=== PATIENT | male | born 1990 | race Caucasian/White ===

== ENCOUNTER 2016-06-29 10:10 | Emergency (ER) | payer OTHER ==
[2016-06-29 10:54] LABS: BASO # 0.2 K/mm3 (0.0-0.2); BASO % 2.6 % (0.0-1.0); EOS % 0.3 % (0.0-3.0); LARGE UNSTAINED CELL # 0.5 K/mm3 (0.0-0.4); LARGE UNSTAINED CELL % 7.3 % (0.0-4.0); LYMPH # 1.8 K/mm3 (1.5-6.5); LYMPH % 16.6 % (24.0-44.0); MEAN CORPUSCULAR HEMOGLOBIN 31.1 pg (27.0-33.0); MEAN CORPUSCULAR HGB CONC 34.4 g/dl (32.0-36.5); MEAN CORPUSCULAR VOLUME 90.5 fl (80.0-96.0); MONO # 1.1 K/mm3 (0.0-0.8); MONO % 14.4 % (0.0-5.0); NEUTROPHILS # 4.3 K/mm3 (1.8-7.7); NEUTROPHILS % 58.8 % (36.0-66.0); PLATELET COUNT, AUTOMATED 208 k/mm3 (150-450); WHITE BLOOD COUNT 7.3 K/mm3 (4.0-10.0)
[2016-06-29] MEDS ORDERED: KETOROLAC 30 MG/ML VIAL (J1885) As Ordered ONE (10:55)
[2016-06-29] MEDS ORDERED: ONDANSETRON 4MG/2ML VIAL (J2405) As Ordered ONE (10:55)
[2016-06-29 11:10] LABS: ALBUMIN 4.6 GM/DL (3.2-5.2); ALBUMIN/GLOBULIN RATIO 1.21 (1.00-1.93); ALKALINE PHOSPHATASE 73 U/L (45-117); ALT/SGPT 19 U/L (12-78); AMYLASE 46 U/L (25-115); ANION GAP 9 MEQ/L (8-16); AST/SGOT 13 U/L (15-37); BILIRUBIN,DIRECT 0.3 MG/DL (0.0-0.2); BILIRUBIN,TOTAL 1.1 MG/DL (0.2-1.0); BLOOD UREA NITROGEN 12 MG/DL (7-18); CALCIUM LEVEL 9.1 MG/DL (8.5-10.1); CARBON DIOXIDE LEVEL 28 MEQ/L (21-32); CHLORIDE LEVEL 102 MEQ/L (98-107); CREATININE FOR GFR 1.07 MG/DL (0.70-1.30); GLOMERULAR FILTRATION RATE > 60.0 (>60); GLUCOSE, FASTING 102 MG/DL (70-105); SODIUM LEVEL 139 MEQ/L (136-145); TOTAL PROTEIN 8.4 GM/DL (6.4-8.2)
--- NOTE | 2016-06-29 12:03 | EDDOCDS ---
Nurse's Notes [facility] Name: Shaji Hansen Age: 26 yrs Sex: Male : 1990 Arrival Date: 06/29/2016 Time: 10:10 Bed I4 / M4 Private MD: Darrel Blake CAR Diagnosis: Nausea and vomiting Presentation: 06/29 10:15 Presenting complaint: Patient states: n/v/d x4 days. Unable to eat. Adult Sepsis ttb Screening: The patient does not have new or worsening altered mentation. Patient's respiratory rate is less than 22. Systolic blood pressure is greater than 100. Patient has a qSOFA score of 0- Negative Sepsis Screen. Suicide/Homicide risk assessment- the patient denies having any suicidal and/or homicidal ideations and does not present with any other emotional, behavioral or mental health complaints. Status: Patient is not a funeral service licensee or dependent. Transition of care: patient was not received from another setting of care. 10:15 Acuity: SON Level 3 ttb 10:15 Method Of Arrival: Walkin/Carried/Asstd ttb Triage Assessment: 10:16 General: Appears in no apparent distress, well nourished, well groomed, Behavior is ttb appropriate for age, cooperative, pleasant. Pain: Location: abd pain : "aches". HIV screening NA for this visit Offered previously. Neurological: Level of Consciousness is awake, alert. Cardiovascular: Chest pain is denied. Respiratory: No deficits noted. Airway is patent Respiratory effort is even, unlabored, Denies cough, shortness of breath. GI: Reports diarrhea, lower abdominal pain, upper abd pain, nausea, vomiting. GI: Reports intolerance of food, intolerance of fluids. Derm: Skin is normal. Injury Description: No known injury. Historical: - Allergies: SULFA (SULFONAMIDES); - Home Meds: 1. none - PMHx: none; - PSHx: Tonsillectomy; Adenoidectomy; - Social history: Smoking status: Patient states was never smoker of tobacco. Patient uses alcohol only on a social basis. Patient/guardian denies using street drugs, No barriers to communication noted, The patient speaks fluent Vincentian, Speaks appropriately for age. - Family history: Not pertinent. - : The pt / caregiver states he / she is not on anticoagulants. Home medication list is obtained from the patient. - Exposure Risk Screening:: None identified. Screenin:51 Screening information is obtained from the patient. Fall risk: No risks identified. kc3 Assistance ADL's: requires no assistance with activities of daily living. Abuse/DV Screen: The patient / caregiver reports he/she is: not in a situation that causes fear, pain or injury. Nutritional screening: No deficits noted. Advance Directives: Currently, there is no health care proxy. home support is adequate. Assessment: 10:50 General: Appears in no apparent distress, comfortable, Behavior is appropriate for age, kc3 cooperative. Pain: Location: back. Respiratory: Airway is patent Respiratory effort is even, unlabored. GI: Abdomen is flat, Bowel sounds present X 4 quads. Abd is soft Abd is tender to palpation Reports diarrhea, nausea, vomiting. Derm: Skin is pink, warm & dry. 12:01 General: Appears in no apparent distress, comfortable, Behavior is appropriate for age, kc3 cooperative. Respiratory: Airway is patent Respiratory effort is even, unlabored. GI: Denies nausea, vomiting. Derm: Skin is pink, warm & dry. Vital Signs: 10:12 BP 152 / 92 RA Sitting (auto/reg); Pulse 93; Resp 18; Temp 99.6(O); Pulse Ox 97% on jrd R/A; Weight 95.25 kg (R); Height 6 ft. 2 in. (187.96 cm) (R); Pain 6/10; 11:27 BP 125 / 69; Pulse 79; Resp 16; Temp 99.5(O); Pulse Ox 98% on R/A; lr2 10:12 Body Mass Index 26.96 (95.25 kg, 187.96 cm) [facility] Vitals: 10:12 Log In Time: June 29, 2016 at 10:10. rony ED Course: 10:11 Patient visited by Sunny Lau PCA. jrd 10:11 Patient moved to Waiting jrd 10:12 Darrel Blake is Private Physician. jrd 10:14 Patient visited by Sunny Lau PCA. jrd 10:14 Patient moved to Pre RCE jrd 10:16 Triage Initiated ttb 10:17 Patient moved to Triage 3 ttb 10:21 Frank Allen FNP is PHCP. ke 10:21 Patient visited by Frank Allen FNP. ke 10:21 Patient visited by Frank Allen FNP. ke 10:34 Patient moved to I4 / ml6 10:47 Patient visited by Frank Allen FNP. ke 10:49 -Influenza A&B Rapid Antigen - Nose Sent. kc3 10:49 Amylase Sent. kc3 10:49 Basic Metabolic Profile Sent. kc3 10:50 CBC with Diff Sent. kc3 10:50 Lipase Sent. kc3 10:50 Liver Profile Sent. kc3 10:50 Inserted saline lock: 20 gauge in right antecubital area and blood collected. The kc3 patient tolerated the procedure well. 10:52 [facility] Payment Agreement was scanned into [employer] and attached to record. lg 10:52 The patient / caregiver is instructed regarding the plan of care and ED course. kc3 11:29 Patient visited by Frank Allen FNP. ke 11:51 Darrel Blake is Referral Physician. ke 12:01 Discontinued IV lock intact, bleeding controlled, pressure dressing applied, No kc3 redness/swelling at site. No procedures done that require assistance. Administered Medications: 11:01 Drug: NS 0.9% 1000 ml [sodium chloride 0.9 % intravenous solution] Route: IV; Rate: kc3 bolus; Site: right antecubital; 12:02 Follow up: IV Status: Completed infusion kc3 11:01 Drug: Ondansetron 4 mg [ondansetron HCl 2 mg/mL intravenous solution (2 mL)] Route: kc3 IVP; Site: right antecubital; 11:02 Drug: ketorolac 30 mg [ketorolac 30 mg/mL (1 mL) injection solution (1 mL)] Route: IVP; kc3 Site: right antecubital; Order Results: Lab Order: Amylase; SPEC'M 06/29/16 10:43 Test: AMYLASE; Value: 46; Range: 25-115; Units: U/L; Status: F Lab Order: Basic Metabolic Profile; SPEC'M 06/29/16 10:43 Test: GLUCOSE, FASTING; Value: 102; Range: 70-105; Units: MG/DL; Status: F Test: BLOOD UREA NITROGEN; Value: 12; Range: 7-18; Units: MG/DL; Status: F Test: CREATININE FOR GFR; Value: 1.07; Range: 0.70-1.30; Units: MG/DL; Status: F Test: GLOMERULAR FILTRATION RATE; Value: > 60.0; Range: >60; Status: F Test: SODIUM LEVEL; Value: 139; Range: 136-145; Units: MEQ/L; Status: F Test: POTASSIUM SERUM; Value: 4.0; Range: 3.5-5.1; Units: MEQ/L; Status: F Test: CHLORIDE LEVEL; Value: 102; Range: 98-107; Units: MEQ/L; Status: F Test: CARBON DIOXIDE LEVEL; Value: 28; Range: 21-32; Units: MEQ/L; Status: F Test: ANION GAP; Value: 9; Range: 8-16; Units: MEQ/L; Status: F Test: CALCIUM LEVEL; Value: 9.1; Range: 8.5-10.1; Units: MG/DL; Status: F Test Note: ; Units are mL/min/1.73 m2 Chronic Kidney Disease Staging per NKF: Stage I & II GFR >=60 Normal to Mildly Decreased Stage III GFR 30-59 Moderately Decreased Stage IV GFR 15-29 Severely Decreased Stage V GFR <15 Very Little GFR Left ESRD GFR <15 on HOSIERY MENDER Lab Order: CBC with Diff; SPEC'M 06/29/16 10:43 Test: WHITE BLOOD COUNT; Value: 7.3; Range: 4.0-10.0; Units: K/mm3; Status: F Test: RED BLOOD COUNT; Value: 5.75; Range: 4.30-6.10; Units: M/mm3; Status: F Test: HEMOGLOBIN; Value: 17.9; Range: 14.0-18.0; Units: g/dl; Status: F Test: HEMATOCRIT; Value: 52.0; Range: 42.0-52.0; Units: %; Status: F Test: MEAN CORPUSCULAR VOLUME; Value: 90.5; Range: 80.0-96.0; Units: fl; Status: F Test: MEAN CORPUSCULAR HEMOGLOBIN; Value: 31.1; Range: 27.0-33.0; Units: pg; Status: F Test: MEAN CORPUSCULAR HGB CONC; Value: 34.4; Range: 32.0-36.5; Units: g/dl; Status: F Test: RED CELL DISTRIBUTION WIDTH; Value: 12.0; Range: 11.5-14.5; Units: %; Status: F Test: PLATELET COUNT, AUTOMATED; Value: 208; Range: 150-450; Units: k/mm3; Status: F Test: NEUTROPHILS %; Value: 58.8; Range: 36.0-66.0; Units: %; Status: F Test: LYMPH %; Value: 16.6; Range: 24.0-44.0; Abnormal: Below low normal; Units: %; Status: F Test: MONO %; Value: 14.4; Range: 0.0-5.0; Abnormal: Above high normal; Units: %; Status: F Test: EOS %; Value: 0.3; Range: 0.0-3.0; Units: %; Status: F Test: BASO %; Value: 2.6; Range: 0.0-1.0; Abnormal: Above high normal; Units: %; Status: F Test: LARGE UNSTAINED CELL %; Value: 7.3; Range: 0.0-4.0; Abnormal: Above high normal; Units: %; Status: F Test: NEUTROPHILS #; Value: 4.3; Range: 1.8-7.7; Units: K/mm3; Status: F Test: LYMPH #; Value: 1.8; Range: 1.5-6.5; Units: K/mm3; Status: F Test: MONO #; Value: 1.1; Range: 0.0-0.8; Abnormal: Above high normal; Units: K/mm3; Status: F Test: EOS #; Value: 0.0; Range: 0.0-0.50; Units: K/mm3; Status: F Test: BASO #; Value: 0.2; Range: 0.0-0.2; Units: K/mm3; Status: F Test: LARGE UNSTAINED CELL #; Value: 0.5; Range: 0.0-0.4; Abnormal: Above high normal; Units: K/mm3; Status: F Lab Order: Lipase; SPEC'M 06/29/16 10:43 Test: LIPASE; Value: 115; Range: 73-393; Units: U/L; Status: F Lab Order: Liver Profile; SPEC'M 06/29/16 10:43 Test: AST/SGOT; Value: 13; Range: 15-37; Abnormal: Below low normal; Units: U/L; Status: F Test: ALT/SGPT; Value: 19; Range: 12-78; Units: U/L; Status: F Test: ALKALINE PHOSPHATASE; Value: 73; Range: 45-117; Units: U/L; Status: F Test: BILIRUBIN,TOTAL; Value: 1.1; Range: 0.2-1.0; Abnormal: Above high normal; Units: MG/DL; Status: F Test: BILIRUBIN,DIRECT; Value: 0.3; Range: 0.0-0.2; Abnormal: Above high normal; Units: MG/DL; Status: F Test: TOTAL PROTEIN; Value: 8.4; Range: 6.4-8.2; Abnormal: Above high normal; Units: GM/DL; Status: F Test: ALBUMIN; Value: 4.6; Range: 3.2-5.2; Units: GM/DL; Status: F Test: ALBUMIN/GLOBULIN RATIO; Value: 1.21; Range: 1.00-1.93; Status: F Lab Order: -Influenza A&B Rapid Antigen - Nose; SPEC'M 06/29/16 10:43 Test: INFLUENZA A RAPID SCR by ICA; Value: INFLUENZA A RESULTS NEGATIVE; Status: F Test: INFLUENZA A RAPID SCR by ICA; Value: Comments:; Status: F Test: INFLUENZA B RAPID SCR by ICA; Value: INFLUENZA B RESULTS NEGATIVE; Status: F Test Note: ; The Influenza test is a direct rapid immunoassay for the qualitative detection of Influenza viral antigen. Cell culture (Viral Culture) testing should be considered to confirm NEGATIVE results and to assist in detecting other viruses that can provide similar clinical symptoms. Please contact the lab within 24 hours ([phone]) if confirmatory testing is desired. Outcome: 11:52 Discharge ordered by Provider. ke 12:01 Discharge Assessment: Patient awake, alert and oriented x 3. No cognitive and/or kc3 functional deficits noted. Patient verbalized understanding of disposition instructions. patient administered narcotics - no. The following High Risk Discharge criteria are identified: None. Discharged to home ambulatory. Condition: stable. Discharge instructions given to patient, Instructed on discharge instructions, follow up and referral plans. medication usage, Demonstrated understanding of instructions, medications, Pt was receptive of discharge instructions/ teaching. Prescriptions given X 1, Work note provided to patient. No special radiology studies were completed. Property :Personal belongings accompany Pt. 12:02 Patient left the ED. kc3 Signatures: Jevon He, Reg Reg lg Frank Allen, SUPERVISOR POWDERED SUGAR SUPERVISOR POWDERED SUGAR Tony Walker, RN RN ml6 Lisa Fleming RN RN ttb Sunny Lau, CESIA WASTEWATER PROJECT MANAGER jrd Adrianna Soliz,MARCELO RN kc3 Qing Barton2 Corrections: (The following items were deleted from the chart) 10:14 10:12 BP 152 / 92 Sitting Auto R Arm Regular; Pulse 93bpm; Resp 18bpm; Pulse Ox 97% RA; jrd Temp 99.6F Oral; 95.25 kg Reported; Height 6 ft. 2 in. Reported; BMI: 26.9; Pain 4/10; jrd MTDD
--- NOTE | 2016-06-29 12:03 | EDDOCDS ---
Physician Documentation [facility] Name: Shaji Hansen Age: 26 yrs Sex: Male : 1990 Arrival Date: 06/29/2016 Time: 10:10 Bed I4 / M4 Private MD: Darrel Blake, CAR Disposition: 06/29/16 11:52 Discharged to Home/Self Care. Impression: Nausea and vomiting. - Condition is Stable. - Discharge Instructions: Nausea and Vomiting. - Prescriptions for Zofran 4 mg Oral Tablet - take 1 tablet by ORAL route 4 times per day As needed; 10 tablet. - Medication Reconciliation, Local Pharmacy Hours, Work Release Form - 1 day form. - Follow up: Darrel Blake; When: As needed; Reason: Continuance of care. - Problem is an ongoing problem. - Symptoms are unchanged. Historical: - Allergies: SULFA (SULFONAMIDES); - Home Meds: 1. none - PMHx: none; - PSHx: Tonsillectomy; Adenoidectomy; - Social history: Smoking status: Patient states was never smoker of tobacco. Patient uses alcohol only on a social basis. Patient/guardian denies using street drugs, No barriers to communication noted, The patient speaks fluent Georgian, Speaks appropriately for age. - Family history: Not pertinent. - : The pt / caregiver states he / she is not on anticoagulants. Home medication list is obtained from the patient. - Exposure Risk Screening:: None identified. Vital Signs: 06/29 10:12 BP 152 / 92 RA Sitting (auto/reg); Pulse 93; Resp 18; Temp 99.6(O); Pulse Ox 97% on jrd R/A; Weight 95.25 kg / 209.99 lbs (R); Height 6 ft. 2 in. (187.96 cm) (R); Pain 6/10; 11:27 BP 125 / 69; Pulse 79; Resp 16; Temp 99.5(O); Pulse Ox 98% on R/A; lr2 10:12 Body Mass Index 26.96 (95.25 kg, 187.96 cm) jrd MDM: 10:23 Financial registration complete. lg 10:25 NS 0.9% 1000 ml IV at bolus once ordered. ke 10:25 Ondansetron 4 mg IVP once ordered. ke 10:25 ketorolac 30 mg IVP once ordered. ke 10:25 IV Saline Lock ordered. ke 10:25 Undress patient appropriately for examination ordered. ke 10:25 Obtain sample by nasopharyngeal swab ordered. ke 10:26 Amylase Ordered. EDMS 10:26 Basic Metabolic Profile Ordered. EDMS 10:26 CBC with Diff Ordered. EDMS 10:26 Lipase Ordered. EDMS 10:26 Liver Profile Ordered. EDMS 10:26 -Influenza A&B Rapid Antigen - Nose Ordered. EDMS 10:26 NOTHING BY MOUTH+DIET ordered. EDMS 10:52 [facility] Payment Agreement was scanned into [employer] and attached to record. lg 11:23 CBC with Diff Reviewed. ke 11:23 Liver Profile Reviewed. ke 11:23 Amylase Reviewed. ke 11:23 Basic Metabolic Profile Reviewed. ke 11:23 Lipase Reviewed. ke 11:23 -Influenza A&B Rapid Antigen - Nose Reviewed. ke Administered Medications: 11:01 Drug: NS 0.9% 1000 ml [sodium chloride 0.9 % intravenous solution] Route: IV; Rate: kc3 bolus; Site: right antecubital; 12:02 Follow up: IV Status: Completed infusion kc3 11:01 Drug: Ondansetron 4 mg [ondansetron HCl 2 mg/mL intravenous solution (2 mL)] Route: kc3 IVP; Site: right antecubital; 11:02 Drug: ketorolac 30 mg [ketorolac 30 mg/mL (1 mL) injection solution (1 mL)] Route: IVP; kc3 Site: right antecubital; Signatures: Dispatcher [employer] EDDE Jevon He, Jens Reg lg Frank Allen, HOUSEKEEPER CHILD CARE HOUSEKEEPER CHILD CARE Lisa Gurrola RN RN ttAdrianna Ortiz RN RN kc3 The chart was reviewed and I authenticate all verbal orders and agree with the evaluation and treatment provided.Attachments: 10:52 [facility] Payment [facility]
--- NOTE | 2016-07-01 13:03 | EDDOCDS ---
Physician Documentation [facility] Name: Shaji Hansen Age: 26 yrs Sex: Male : 1990 Arrival Date: 06/29/2016 Time: 10:10 Bed I4 / M4 Private MD: Darrel Blake, CAR Disposition: 06/29/16 11:52 Discharged to Home/Self Care. Impression: Nausea and vomiting. - Condition is Stable. - Discharge Instructions: Nausea and Vomiting. - Prescriptions for Zofran 4 mg Oral Tablet - take 1 tablet by ORAL route 4 times per day As needed; 10 tablet. - Medication Reconciliation, Local Pharmacy Hours, Work Release Form - 1 day form. - Follow up: Darrel Blake; When: As needed; Reason: Continuance of care. - Problem is an ongoing problem. - Symptoms are unchanged. Historical: - Allergies: SULFA (SULFONAMIDES); - Home Meds: 1. none - PMHx: none; - PSHx: Tonsillectomy; Adenoidectomy; - Social history: Smoking status: Patient states was never smoker of tobacco. Patient uses alcohol only on a social basis. Patient/guardian denies using street drugs, No barriers to communication noted, The patient speaks fluent Sami, Speaks appropriately for age. - Family history: Not pertinent. - : The pt / caregiver states he / she is not on anticoagulants. Home medication list is obtained from the patient. - Exposure Risk Screening:: None identified. Vital Signs: 06/29 10:12 BP 152 / 92 RA Sitting (auto/reg); Pulse 93; Resp 18; Temp 99.6(O); Pulse Ox 97% on jrd R/A; Weight 95.25 kg / 209.99 lbs (R); Height 6 ft. 2 in. (187.96 cm) (R); Pain 6/10; 11:27 BP 125 / 69; Pulse 79; Resp 16; Temp 99.5(O); Pulse Ox 98% on R/A; lr2 10:12 Body Mass Index 26.96 (95.25 kg, 187.96 cm) jrd MDM: 10:23 Financial registration complete. lg 10:25 NS 0.9% 1000 ml IV at bolus once ordered. ke 10:25 Ondansetron 4 mg IVP once ordered. ke 10:25 ketorolac 30 mg IVP once ordered. ke 10:25 IV Saline Lock ordered. ke 10:25 Undress patient appropriately for examination ordered. ke 10:25 Obtain sample by nasopharyngeal swab ordered. ke 10:26 Amylase Ordered. EDMS 10:26 Basic Metabolic Profile Ordered. EDMS 10:26 CBC with Diff Ordered. EDMS 10:26 Lipase Ordered. EDMS 10:26 Liver Profile Ordered. EDMS 10:26 -Influenza A&B Rapid Antigen - Nose Ordered. EDMS 10:26 NOTHING BY MOUTH+DIET ordered. EDMS 10:52 [facility] Payment Agreement was scanned into [employer] and attached to record. lg 11:23 CBC with Diff Reviewed. ke 11:23 Liver Profile Reviewed. ke 11:23 Amylase Reviewed. ke 11:23 Basic Metabolic Profile Reviewed. ke 11:23 Lipase Reviewed. ke 11:23 -Influenza A&B Rapid Antigen - Nose Reviewed. ke 14:55 T-Sheet-- Draft Copy was scanned into [employer] and attached to record. gb Administered Medications: 11:01 Drug: NS 0.9% 1000 ml [sodium chloride 0.9 % intravenous solution] Route: IV; Rate: kc3 bolus; Site: right antecubital; 12:02 Follow up: IV Status: Completed infusion kc3 11:01 Drug: Ondansetron 4 mg [ondansetron HCl 2 mg/mL intravenous solution (2 mL)] Route: kc3 IVP; Site: right antecubital; 11:02 Drug: ketorolac 30 mg [ketorolac 30 mg/mL (1 mL) injection solution (1 mL)] Route: IVP; kc3 Site: right antecubital; Signatures: Dispatcher [employer] EDMS Ale Ward, Reg Reg gb Jevon He, Reg Reg lg Frank Allen, TRAVEL GUIDE TRAVEL GUIDE Lisa Gurrola RN RN ttb Crane, Kelsi, RN RN kc3 The chart was reviewed and I authenticate all verbal orders and agree with the evaluation and treatment provided.Attachments: 10:52 [facility] Payment Agreement lg 14:55 T-Sheet-- Draft Copy gb Chart Complete MTDD
--- NOTE | 2016-07-01 13:03 | EDDOCDS ---
Physician Documentation [facility] Name: Shaji Hansen Age: 26 yrs Sex: Male : 1990 Arrival Date: 06/29/2016 Time: 10:10 Bed I4 / M4 Private MD: Darrel Blake, CAR Disposition: 06/29/16 11:52 Discharged to Home/Self Care. Impression: Nausea and vomiting. - Condition is Stable. - Discharge Instructions: Nausea and Vomiting. - Prescriptions for Zofran 4 mg Oral Tablet - take 1 tablet by ORAL route 4 times per day As needed; 10 tablet. - Medication Reconciliation, Local Pharmacy Hours, Work Release Form - 1 day form. - Follow up: Darrel Blake; When: As needed; Reason: Continuance of care. - Problem is an ongoing problem. - Symptoms are unchanged. Historical: - Allergies: SULFA (SULFONAMIDES); - Home Meds: 1. none - PMHx: none; - PSHx: Tonsillectomy; Adenoidectomy; - Social history: Smoking status: Patient states was never smoker of tobacco. Patient uses alcohol only on a social basis. Patient/guardian denies using street drugs, No barriers to communication noted, The patient speaks fluent Occitan, Speaks appropriately for age. - Family history: Not pertinent. - : The pt / caregiver states he / she is not on anticoagulants. Home medication list is obtained from the patient. - Exposure Risk Screening:: None identified. Vital Signs: 06/29 10:12 BP 152 / 92 RA Sitting (auto/reg); Pulse 93; Resp 18; Temp 99.6(O); Pulse Ox 97% on jrd R/A; Weight 95.25 kg / 209.99 lbs (R); Height 6 ft. 2 in. (187.96 cm) (R); Pain 6/10; 11:27 BP 125 / 69; Pulse 79; Resp 16; Temp 99.5(O); Pulse Ox 98% on R/A; lr2 10:12 Body Mass Index 26.96 (95.25 kg, 187.96 cm) jrd MDM: 10:23 Financial registration complete. lg 10:25 NS 0.9% 1000 ml IV at bolus once ordered. ke 10:25 Ondansetron 4 mg IVP once ordered. ke 10:25 ketorolac 30 mg IVP once ordered. ke 10:25 IV Saline Lock ordered. ke 10:25 Undress patient appropriately for examination ordered. ke 10:25 Obtain sample by nasopharyngeal swab ordered. ke 10:26 Amylase Ordered. EDMS 10:26 Basic Metabolic Profile Ordered. EDMS 10:26 CBC with Diff Ordered. EDMS 10:26 Lipase Ordered. EDMS 10:26 Liver Profile Ordered. EDMS 10:26 -Influenza A&B Rapid Antigen - Nose Ordered. EDMS 10:26 NOTHING BY MOUTH+DIET ordered. EDMS 10:52 [facility] Payment Agreement was scanned into [employer] and attached to record. lg 11:23 CBC with Diff Reviewed. ke 11:23 Liver Profile Reviewed. ke 11:23 Amylase Reviewed. ke 11:23 Basic Metabolic Profile Reviewed. ke 11:23 Lipase Reviewed. ke 11:23 -Influenza A&B Rapid Antigen - Nose Reviewed. ke 14:55 T-Sheet-- Draft Copy was scanned into [employer] and attached to record. gb Administered Medications: 11:01 Drug: NS 0.9% 1000 ml [sodium chloride 0.9 % intravenous solution] Route: IV; Rate: kc3 bolus; Site: right antecubital; 12:02 Follow up: IV Status: Completed infusion kc3 11:01 Drug: Ondansetron 4 mg [ondansetron HCl 2 mg/mL intravenous solution (2 mL)] Route: kc3 IVP; Site: right antecubital; 11:02 Drug: ketorolac 30 mg [ketorolac 30 mg/mL (1 mL) injection solution (1 mL)] Route: IVP; kc3 Site: right antecubital; Signatures: Dispatcher [employer] EDMS Ale aWrd, Reg Reg gb Jevon He, Reg Reg lg Frank Allen, SNAILER SNAILER Lisa Gurrola RN RN ttb Crane, Kelsi, RN RN kc3 The chart was reviewed and I authenticate all verbal orders and agree with the evaluation and treatment provided.Attachments: 10:52 [facility] Payment Agreement lg 14:55 T-Sheet-- Draft Copy gb Chart Complete MTDD
--- NOTE | 2016-07-01 13:04 | EDDOCDS ---
Nurse's Notes [facility] Name: Shaji Hansen Age: 26 yrs Sex: Male : 1990 Arrival Date: 06/29/2016 Time: 10:10 Bed I4 / M4 Private MD: Darrel Blake CAR Diagnosis: Nausea and vomiting Presentation: 06/29 10:15 Presenting complaint: Patient states: n/v/d x4 days. Unable to eat. Adult Sepsis ttb Screening: The patient does not have new or worsening altered mentation. Patient's respiratory rate is less than 22. Systolic blood pressure is greater than 100. Patient has a qSOFA score of 0- Negative Sepsis Screen. Suicide/Homicide risk assessment- the patient denies having any suicidal and/or homicidal ideations and does not present with any other emotional, behavioral or mental health complaints. Status: Patient is not a service tech/welder or dependent. Transition of care: patient was not received from another setting of care. 10:15 Acuity: SON Level 3 ttb 10:15 Method Of Arrival: Walkin/Carried/Asstd ttb Triage Assessment: 10:16 General: Appears in no apparent distress, well nourished, well groomed, Behavior is ttb appropriate for age, cooperative, pleasant. Pain: Location: abd pain : "aches". HIV screening NA for this visit Offered previously. Neurological: Level of Consciousness is awake, alert. Cardiovascular: Chest pain is denied. Respiratory: No deficits noted. Airway is patent Respiratory effort is even, unlabored, Denies cough, shortness of breath. GI: Reports diarrhea, lower abdominal pain, upper abd pain, nausea, vomiting. GI: Reports intolerance of food, intolerance of fluids. Derm: Skin is normal. Injury Description: No known injury. Historical: - Allergies: SULFA (SULFONAMIDES); - Home Meds: 1. none - PMHx: none; - PSHx: Tonsillectomy; Adenoidectomy; - Social history: Smoking status: Patient states was never smoker of tobacco. Patient uses alcohol only on a social basis. Patient/guardian denies using street drugs, No barriers to communication noted, The patient speaks fluent Pakistani, Speaks appropriately for age. - Family history: Not pertinent. - : The pt / caregiver states he / she is not on anticoagulants. Home medication list is obtained from the patient. - Exposure Risk Screening:: None identified. Screenin:51 Screening information is obtained from the patient. Fall risk: No risks identified. kc3 Assistance ADL's: requires no assistance with activities of daily living. Abuse/DV Screen: The patient / caregiver reports he/she is: not in a situation that causes fear, pain or injury. Nutritional screening: No deficits noted. Advance Directives: Currently, there is no health care proxy. home support is adequate. Assessment: 10:50 General: Appears in no apparent distress, comfortable, Behavior is appropriate for age, kc3 cooperative. Pain: Location: back. Respiratory: Airway is patent Respiratory effort is even, unlabored. GI: Abdomen is flat, Bowel sounds present X 4 quads. Abd is soft Abd is tender to palpation Reports diarrhea, nausea, vomiting. Derm: Skin is pink, warm & dry. 12:01 General: Appears in no apparent distress, comfortable, Behavior is appropriate for age, kc3 cooperative. Respiratory: Airway is patent Respiratory effort is even, unlabored. GI: Denies nausea, vomiting. Derm: Skin is pink, warm & dry. Vital Signs: 10:12 BP 152 / 92 RA Sitting (auto/reg); Pulse 93; Resp 18; Temp 99.6(O); Pulse Ox 97% on jrd R/A; Weight 95.25 kg (R); Height 6 ft. 2 in. (187.96 cm) (R); Pain 6/10; 11:27 BP 125 / 69; Pulse 79; Resp 16; Temp 99.5(O); Pulse Ox 98% on R/A; lr2 10:12 Body Mass Index 26.96 (95.25 kg, 187.96 cm) [facility] Vitals: 10:12 Log In Time: June 29, 2016 at 10:10. rony ED Course: 10:11 Patient visited by Sunny Lau PCA. jrd 10:11 Patient moved to Waiting jrd 10:12 Darrel Blake is Private Physician. jrd 10:14 Patient visited by Sunny Lau PCA. jrd 10:14 Patient moved to Pre RCE jrd 10:16 Triage Initiated ttb 10:17 Patient moved to Triage 3 ttb 10:21 Frank Allen FNP is PHCP. ke 10:21 Patient visited by Frank Allen FNP. ke 10:21 Patient visited by Frank Allen FNP. ke 10:34 Patient moved to I4 / M4 ml6 10:47 Patient visited by Frank Allen FNP. ke 10:49 -Influenza A&B Rapid Antigen - Nose Sent. kc3 10:49 Amylase Sent. kc3 10:49 Basic Metabolic Profile Sent. kc3 10:50 CBC with Diff Sent. kc3 10:50 Lipase Sent. kc3 10:50 Liver Profile Sent. kc3 10:50 Inserted saline lock: 20 gauge in right antecubital area and blood collected. The kc3 patient tolerated the procedure well. 10:52 [facility] Payment Agreement was scanned into [employer] and attached to record. lg 10:52 The patient / caregiver is instructed regarding the plan of care and ED course. kc3 11:29 Patient visited by Frank Allen FNP. ke 11:51 Darrel Blake is Referral Physician. ke 12:01 Discontinued IV lock intact, bleeding controlled, pressure dressing applied, No kc3 redness/swelling at site. No procedures done that require assistance. 14:55 T-Sheet-- Draft Copy was scanned into [employer] and attached to record. gb Administered Medications: 11:01 Drug: NS 0.9% 1000 ml [sodium chloride 0.9 % intravenous solution] Route: IV; Rate: kc3 bolus; Site: right antecubital; 12:02 Follow up: IV Status: Completed infusion kc3 11:01 Drug: Ondansetron 4 mg [ondansetron HCl 2 mg/mL intravenous solution (2 mL)] Route: kc3 IVP; Site: right antecubital; 11:02 Drug: ketorolac 30 mg [ketorolac 30 mg/mL (1 mL) injection solution (1 mL)] Route: IVP; kc3 Site: right antecubital; Order Results: Lab Order: Amylase; SPEC'M 06/29/16 10:43 Test: AMYLASE; Value: 46; Range: 25-115; Units: U/L; Status: F Lab Order: Basic Metabolic Profile; SPEC'M 06/29/16 10:43 Test: GLUCOSE, FASTING; Value: 102; Range: 70-105; Units: MG/DL; Status: F Test: BLOOD UREA NITROGEN; Value: 12; Range: 7-18; Units: MG/DL; Status: F Test: CREATININE FOR GFR; Value: 1.07; Range: 0.70-1.30; Units: MG/DL; Status: F Test: GLOMERULAR FILTRATION RATE; Value: > 60.0; Range: >60; Status: F Test: SODIUM LEVEL; Value: 139; Range: 136-145; Units: MEQ/L; Status: F Test: POTASSIUM SERUM; Value: 4.0; Range: 3.5-5.1; Units: MEQ/L; Status: F Test: CHLORIDE LEVEL; Value: 102; Range: 98-107; Units: MEQ/L; Status: F Test: CARBON DIOXIDE LEVEL; Value: 28; Range: 21-32; Units: MEQ/L; Status: F Test: ANION GAP; Value: 9; Range: 8-16; Units: MEQ/L; Status: F Test: CALCIUM LEVEL; Value: 9.1; Range: 8.5-10.1; Units: MG/DL; Status: F Test Note: ; Units are mL/min/1.73 m2 Chronic Kidney Disease Staging per NKF: Stage I & II GFR >=60 Normal to Mildly Decreased Stage III GFR 30-59 Moderately Decreased Stage IV GFR 15-29 Severely Decreased Stage V GFR <15 Very Little GFR Left ESRD GFR <15 on TOOTH CLERK Lab Order: CBC with Diff; SPEC'M 06/29/16 10:43 Test: WHITE BLOOD COUNT; Value: 7.3; Range: 4.0-10.0; Units: K/mm3; Status: F Test: RED BLOOD COUNT; Value: 5.75; Range: 4.30-6.10; Units: M/mm3; Status: F Test: HEMOGLOBIN; Value: 17.9; Range: 14.0-18.0; Units: g/dl; Status: F Test: HEMATOCRIT; Value: 52.0; Range: 42.0-52.0; Units: %; Status: F Test: MEAN CORPUSCULAR VOLUME; Value: 90.5; Range: 80.0-96.0; Units: fl; Status: F Test: MEAN CORPUSCULAR HEMOGLOBIN; Value: 31.1; Range: 27.0-33.0; Units: pg; Status: F Test: MEAN CORPUSCULAR HGB CONC; Value: 34.4; Range: 32.0-36.5; Units: g/dl; Status: F Test: RED CELL DISTRIBUTION WIDTH; Value: 12.0; Range: 11.5-14.5; Units: %; Status: F Test: PLATELET COUNT, AUTOMATED; Value: 208; Range: 150-450; Units: k/mm3; Status: F Test: NEUTROPHILS %; Value: 58.8; Range: 36.0-66.0; Units: %; Status: F Test: LYMPH %; Value: 16.6; Range: 24.0-44.0; Abnormal: Below low normal; Units: %; Status: F Test: MONO %; Value: 14.4; Range: 0.0-5.0; Abnormal: Above high normal; Units: %; Status: F Test: EOS %; Value: 0.3; Range: 0.0-3.0; Units: %; Status: F Test: BASO %; Value: 2.6; Range: 0.0-1.0; Abnormal: Above high normal; Units: %; Status: F Test: LARGE UNSTAINED CELL %; Value: 7.3; Range: 0.0-4.0; Abnormal: Above high normal; Units: %; Status: F Test: NEUTROPHILS #; Value: 4.3; Range: 1.8-7.7; Units: K/mm3; Status: F Test: LYMPH #; Value: 1.8; Range: 1.5-6.5; Units: K/mm3; Status: F Test: MONO #; Value: 1.1; Range: 0.0-0.8; Abnormal: Above high normal; Units: K/mm3; Status: F Test: EOS #; Value: 0.0; Range: 0.0-0.50; Units: K/mm3; Status: F Test: BASO #; Value: 0.2; Range: 0.0-0.2; Units: K/mm3; Status: F Test: LARGE UNSTAINED CELL #; Value: 0.5; Range: 0.0-0.4; Abnormal: Above high normal; Units: K/mm3; Status: F Lab Order: Lipase; SPEC'M 06/29/16 10:43 Test: LIPASE; Value: 115; Range: 73-393; Units: U/L; Status: F Lab Order: Liver Profile; SPEC'M 06/29/16 10:43 Test: AST/SGOT; Value: 13; Range: 15-37; Abnormal: Below low normal; Units: U/L; Status: F Test: ALT/SGPT; Value: 19; Range: 12-78; Units: U/L; Status: F Test: ALKALINE PHOSPHATASE; Value: 73; Range: 45-117; Units: U/L; Status: F Test: BILIRUBIN,TOTAL; Value: 1.1; Range: 0.2-1.0; Abnormal: Above high normal; Units: MG/DL; Status: F Test: BILIRUBIN,DIRECT; Value: 0.3; Range: 0.0-0.2; Abnormal: Above high normal; Units: MG/DL; Status: F Test: TOTAL PROTEIN; Value: 8.4; Range: 6.4-8.2; Abnormal: Above high normal; Units: GM/DL; Status: F Test: ALBUMIN; Value: 4.6; Range: 3.2-5.2; Units: GM/DL; Status: F Test: ALBUMIN/GLOBULIN RATIO; Value: 1.21; Range: 1.00-1.93; Status: F Lab Order: -Influenza A&B Rapid Antigen - Nose; SPEC'M 06/29/16 10:43 Test: INFLUENZA A RAPID SCR by ICA; Value: INFLUENZA A RESULTS NEGATIVE; Status: F Test: INFLUENZA A RAPID SCR by ICA; Value: Comments:; Status: F Test: INFLUENZA B RAPID SCR by ICA; Value: INFLUENZA B RESULTS NEGATIVE; Status: F Test Note: ; The Influenza test is a direct rapid immunoassay for the qualitative detection of Influenza viral antigen. Cell culture (Viral Culture) testing should be considered to confirm NEGATIVE results and to assist in detecting other viruses that can provide similar clinical symptoms. Please contact the lab within 24 [phone] if confirmatory testing is desired. Outcome: 11:52 Discharge ordered by Provider. ke 12:01 Discharge Assessment: Patient awake, alert and oriented x 3. No cognitive and/or kc3 functional deficits noted. Patient verbalized understanding of disposition instructions. patient administered narcotics - no. The following High Risk Discharge criteria are identified: None. Discharged to home ambulatory. Condition: stable. Discharge instructions given to patient, Instructed on discharge instructions, follow up and referral plans. medication usage, Demonstrated understanding of instructions, medications, Pt was receptive of discharge instructions/ teaching. Prescriptions given X 1, Work note provided to patient. No special radiology studies were completed. Property :Personal belongings accompany Pt. 12:02 Patient left the ED. kc3 Signatures: Ale Ward, Reg Reg gb Jevon He, Reg Reg lg Frank Allen, NUCLEAR MEDICINE TECHNICIAN NUCLEAR MEDICINE TECHNICIAN Tony Walker, RN RN ml6 Lisa Fleming, RN RN ttb Sunny Lau, [employer] jrd Adrianna Soliz,RN RN kc3 Qing Barton2 Corrections: (The following items were deleted from the chart) 10:14 10:12 BP 152 / 92 Sitting Auto R Arm Regular; Pulse 93bpm; Resp 18bpm; Pulse Ox 97% RA; jrd Temp 99.6F Oral; 95.25 kg Reported; Height 6 ft. 2 in. Reported; BMI: 26.9; Pain 4/10; jrd Chart Complete MTDD
== END 2016-06-29 12:02 | disposition home or self-care (01) ==
LOC: M ED 10:10
DX: R11.2 Nausea with vomiting, unspecified (principal); Z88.2 Allergy status to sulfonamides
CPT/HCPCS: 36415; 80048; 80076; 82150; 83690; 85025; 87804; 96361; 96374; 96375; 99284; J1885; J2405

== ENCOUNTER → 2016-09-18 | Outpatient (CLI) | payer OTHER | LOC: M RAD 13:44 | DX: L30.9 Dermatitis, unspecified (principal) ==

== ENCOUNTER 2016-12-19 12:51 | Emergency (ER) | payer OTHER ==
[~2016-12-19] VITALS: Ht 188 cm; Wt 95.4 kg
[2016-12-19 12:52] VITALS: BP 123/81
[2016-12-19] MEDS ORDERED: HYDR25OI TOP (13:45)
[2016-12-19] MEDS ORDERED: BENA25CA4 PO (13:45)
[2017-03-14] MEDS ORDERED: NAPR500T3 PO (22:47)
== END 2016-12-19 13:51 | disposition home or self-care (01) ==
LOC: M ED 12:51
DX: L25.9 Unspecified contact dermatitis, unspecified cause (principal); T26.02XA Burn of left eyelid and periocular area, initial encounter; X10.2XXA Contact with fats and cooking oils, initial encounter; Y92.099 Unspecified place in other non-institutional residence as the place of occurrence of the external cause; Y93.89 Activity, other specified; Y99.9 Unspecified external cause status; J30.81 Allergic rhinitis due to animal (cat) (dog) hair and dander; J30.1 Allergic rhinitis due to pollen; J30.89 Other allergic rhinitis

== ENCOUNTER 2017-02-04 19:41 | Emergency (ER) | payer OTHER ==
[~2017-02-04] VITALS: Ht 188 cm; Wt 102.9 kg
[2017-02-04 19:41] VITALS: BP 155/83
[~2017-02-04 19:41] MED LIST: BENA25CA4 PO; HYDR25OI TOP
[2017-02-04] MEDS ORDERED: FLUT11IN INH (19:50)
[2017-02-04] MEDS ORDERED: ZYRT10TA2 PO (19:50)
[2017-03-14] MEDS ORDERED: NAPR500T3 PO (22:47)
== END 2017-02-04 22:32 | disposition left against medical advice (07) ==
LOC: M ED 19:41
DX: S05.90XA Unspecified injury of unspecified eye and orbit, initial encounter (principal); X58.XXXA Exposure to other specified factors, initial encounter; Y92.9 Unspecified place or not applicable; Y93.9 Activity, unspecified; Y99.9 Unspecified external cause status; Z53.21 Procedure and treatment not carried out due to patient leaving prior to being seen by health care provider

== ENCOUNTER 2017-08-03 15:54 | Emergency (ER) | payer OTHER ==
[2017-08-03 16:34] LABS: HEMATOCRIT 48.2 % (42.0-52.0); HEMOGLOBIN 16.3 g/dl (14.0-18.0); MEAN CORPUSCULAR HEMOGLOBIN 29.4 pg (27.0-33.0); MEAN CORPUSCULAR HGB CONC 33.8 g/dl (32.0-36.5); PLATELET COUNT, AUTOMATED 255 10^3/uL (150-450); RED BLOOD COUNT 5.54 10^6/uL (4.30-6.10); RED CELL DISTRIBUTION WIDTH 12.9 % (11.5-14.5); WHITE BLOOD COUNT 8.7 10^3/uL (4.0-10.0)
[2017-08-03] MEDS: NS 1,000 ML IV ×2 (16:45→16:50)
[2017-08-03 16:52] LABS: OSMOLALITY SERUM 293 MOSM/KG (275-295)
[2017-08-03 17:07] LABS: ALBUMIN 4.6 GM/DL (3.2-5.2); ALT/SGPT 18 U/L (12-78); BLOOD UREA NITROGEN 13 MG/DL (7-18); CHLORIDE LEVEL 108 MEQ/L (98-107); SALICYLATE LEVEL < 1.7 MG/DL (5.0-30.0)
[2017-08-03 17:15] LABS: ACETAMINOPHEN LEVEL < 2.0 UG/ML (10.0-30.0); ALBUMIN/GLOBULIN RATIO 1.31 (1.00-1.93); ALKALINE PHOSPHATASE 78 U/L (45-117); ANION GAP 7 MEQ/L (8-16); AST/SGOT 12 U/L (7-37); BILIRUBIN,DIRECT 0.4 MG/DL (0.0-0.2); BILIRUBIN,TOTAL 1.6 MG/DL (0.2-1.0); CALCIUM LEVEL 9.4 MG/DL (8.5-10.1); CARBON DIOXIDE LEVEL 26 MEQ/L (21-32); CPK CREATINE PHOSPHOKINASE 108 U/L (39-308); CREATININE FOR GFR 0.97 MG/DL (0.70-1.30); GLOMERULAR FILTRATION RATE > 60.0 (>60); GLUCOSE, FASTING 100 MG/DL (70-100); POTASSIUM SERUM 4.4 MEQ/L (3.5-5.1); SODIUM LEVEL 141 MEQ/L (136-145); THYROID STIMULATING HORMONE 0.861 uIU/ML (0.358-3.740); TOTAL PROTEIN 8.1 GM/DL (6.4-8.2)
[2017-08-03 17:17] LABS: ETHYL ALCOHOL (ETHANOL) < 0.003 % (0.000-0.010)
== END 2017-08-03 19:25 | disposition home or self-care (01) ==
LOC: M ED 15:54
DX: R55 Syncope and collapse (principal); F32.9 Major depressive disorder, single episode, unspecified; J30.81 Allergic rhinitis due to animal (cat) (dog) hair and dander; F90.9 Attention-deficit hyperactivity disorder, unspecified type; Z88.8 Allergy status to other drugs, medicaments and biological substances; Z88.2 Allergy status to sulfonamides
CPT/HCPCS: 70450

== ENCOUNTER → 2017-08-20 | Outpatient (CLI) | payer OTHER | LOC: M SLEEP 08:19 | DX: R56.9 Unspecified convulsions (principal) ==

== ENCOUNTER 2017-09-08 03:21 | Emergency (ER) | payer OTHER ==
[2017-09-08 04:02] LABS: HEMOGLOBIN 16.1 g/dl (13.5-17.5); MEAN CORPUSCULAR HEMOGLOBIN 29.8 pg (27.0-33.0); MEAN CORPUSCULAR HGB CONC 34.3 g/dl (32.0-36.5); MEAN CORPUSCULAR VOLUME 86.9 fl (80.0-96.0); PLATELET COUNT, AUTOMATED 245 10^3/uL (150-450); RED BLOOD COUNT 5.41 10^6/uL (4.30-6.10); RED CELL DISTRIBUTION WIDTH 12.4 % (11.5-14.5); WHITE BLOOD COUNT 9.3 10^3/uL (4.0-10.0)
[2017-09-08 04:24] LABS: AMPHETAMINES LEVEL URINE NEGATIVE (NEGATIVE); BARBITURATES URINE NEGATIVE (NEGATIVE); BENZODIAZEPINES URINE NEGATIVE (NEGATIVE); CANNABINOIDS URINE POSITIVE (NEGATIVE); COCAINE METABOLITE URINE NEGATIVE (NEGATIVE); METHADONE URINE NEGATIVE (NEGATIVE); OPIATES URINE POSITIVE (NEGATIVE); PHENCYCLIDINE URINE NEGATIVE (NEGATIVE)
[2017-09-08 04:33] LABS: ALBUMIN 4.6 GM/DL (3.2-5.2); ALBUMIN/GLOBULIN RATIO 1.44 (1.00-1.93); ALKALINE PHOSPHATASE 75 U/L (45-117); ALT/SGPT 22 U/L (12-78); ANION GAP 7 MEQ/L (8-16); AST/SGOT 12 U/L (7-37); BILIRUBIN,DIRECT 0.3 MG/DL (0.0-0.2); BILIRUBIN,TOTAL 1.2 MG/DL (0.2-1.0); BLOOD UREA NITROGEN 12 MG/DL (7-18); CALCIUM LEVEL 9.2 MG/DL (8.5-10.1); CARBON DIOXIDE LEVEL 28 MEQ/L (21-32); CHLORIDE LEVEL 104 MEQ/L (98-107); CREATININE FOR GFR 0.86 MG/DL (0.70-1.30); ETHYL ALCOHOL (ETHANOL) < 0.003 % (0.000-0.010); GLOMERULAR FILTRATION RATE > 60.0 (>60); GLUCOSE, FASTING 105 MG/DL (70-100); POTASSIUM SERUM 3.7 MEQ/L (3.5-5.1); SALICYLATE LEVEL 1.9 MG/DL (5.0-30.0); SODIUM LEVEL 139 MEQ/L (136-145); TOTAL PROTEIN 7.8 GM/DL (6.4-8.2)
[2017-09-08 04:34] LABS: ACETAMINOPHEN LEVEL < 2.0 UG/ML (10.0-30.0)
== END 2017-09-08 05:10 | disposition home or self-care (01) ==
LOC: M ED 03:21
DX: F43.0 Acute stress reaction (principal); S50.812A Abrasion of left forearm, initial encounter; X78.9XXA Intentional self-harm by unspecified sharp object, initial encounter; Y92.89 Other specified places as the place of occurrence of the external cause; Z88.5 Allergy status to narcotic agent; Z88.8 Allergy status to other drugs, medicaments and biological substances; Z88.2 Allergy status to sulfonamides; J30.1 Allergic rhinitis due to pollen
CPT/HCPCS: 80320

== ENCOUNTER 2017-12-02 04:50 | Emergency (ER) | payer OTHER ==
[2017-12-02] MEDS: BENZONATATE 100 MG CAP PO (05:53)
[2017-12-02] MEDS: PSEUDOEPHEDRINE 30 MG TAB PO (05:54)
== END 2017-12-02 05:59 | disposition home or self-care (01) ==
LOC: M ED 04:50
DX: R09.82 Postnasal drip (principal); Z88.1 Allergy status to other antibiotic agents; Z88.2 Allergy status to sulfonamides; Z88.8 Allergy status to other drugs, medicaments and biological substances; J30.1 Allergic rhinitis due to pollen; J30.81 Allergic rhinitis due to animal (cat) (dog) hair and dander; F17.210 Nicotine dependence, cigarettes, uncomplicated
CPT/HCPCS: 99283

== ENCOUNTER 2018-02-02 16:56 | Emergency (ER) | payer OTHER | END 2018-02-02 20:09 | disposition left against medical advice (07) | LOC: M ED 16:56 | DX: Z53.21 Procedure and treatment not carried out due to patient leaving prior to being seen by health care provider (principal) | CPT/HCPCS: 99281 ==

== ENCOUNTER 2018-04-06 19:46 | Emergency (ER) | payer OTHER ==
[2018-04-06] MEDS: ONDANSETRON 4MG/2ML VIAL (J2405) IV (20:45)
[2018-04-06 20:50] LABS: BASO # 0.1 10^3/uL (0.0-0.2); BASO % 0.4 % (0.0-1.0); EOS # 0.1 10^3/uL (0.0-0.50); EOS % 0.5 % (0.0-3.0); HEMATOCRIT 49.3 % (42.0-52.0); HEMOGLOBIN 16.8 g/dl (13.5-17.5); IMMATURE GRANULOCYTE % 0.3 % (0-3.0); LYMPH # 1.9 10^3/uL (1.5-6.5); LYMPH % 15.9 % (24.0-44.0); MEAN CORPUSCULAR HEMOGLOBIN 29.7 pg (27.0-33.0); MEAN CORPUSCULAR HGB CONC 34.1 g/dl (32.0-36.5); MEAN CORPUSCULAR VOLUME 87.1 fl (80.0-96.0); MONO # 1.2 10^3/uL (0.0-0.8); NEUTROPHILS # 8.6 10^3/uL (1.8-7.7); NEUTROPHILS % 72.9 % (36.0-66.0); PLATELET COUNT, AUTOMATED 285 10^3/uL (150-450); RED BLOOD COUNT 5.66 10^6/uL (4.30-6.10); RED CELL DISTRIBUTION WIDTH 12.3 % (11.5-14.5); WHITE BLOOD COUNT 11.8 10^3/uL (4.0-10.0)
[2018-04-06 21:07] LABS: ANION GAP 10 MEQ/L (8-16); BLOOD UREA NITROGEN 20 MG/DL (7-18); CALCIUM LEVEL 9.3 MG/DL (8.5-10.1); CARBON DIOXIDE LEVEL 25 MEQ/L (21-32); CHLORIDE LEVEL 105 MEQ/L (98-107); CREATININE FOR GFR 0.94 MG/DL (0.70-1.30); GLOMERULAR FILTRATION RATE > 60.0 (>60); GLUCOSE, FASTING 94 MG/DL (70-100); POTASSIUM SERUM 3.6 MEQ/L (3.5-5.1); SODIUM LEVEL 140 MEQ/L (136-145)
[2018-04-06 21:16] LABS: INFLUENZA A AMPLIFICATION NEGATIVE (NEGATIVE); INFLUENZA B AMPLIFICATION NEGATIVE (NEGATIVE)
[2018-04-06] MEDS: NS 1,000 ML IV (21:30)
[2018-04-06] MEDS: KETOROLAC 30 MG/ML VIAL (J1885) IV (21:30)
[2018-04-06 21:48] LABS: ALBUMIN 4.2 GM/DL (3.2-5.2); ALBUMIN/GLOBULIN RATIO 1.08 (1.00-1.93); ALKALINE PHOSPHATASE 82 U/L (45-117); ALT/SGPT 63 U/L (12-78); AST/SGOT 21 U/L (7-37); BILIRUBIN,DIRECT 0.3 MG/DL (0.0-0.2); BILIRUBIN,TOTAL 1.3 MG/DL (0.2-1.0); LIPASE 76 U/L (73-393); TOTAL PROTEIN 8.1 GM/DL (6.4-8.2)
[2018-04-06] MEDS: LORazepam 2 MG/ML VIAL (J2060) IV ×2 (21:55→22:27)
[2018-04-06] MEDS: ONDANSETRON 4 MG ORAL DISINTEGRATING TAB (Q0162 PER 1MG) PO (23:00)
== END 2018-04-06 23:02 | disposition home or self-care (01) ==
LOC: M ED 19:46
DX: R10.11 Right upper quadrant pain (principal); R11.2 Nausea with vomiting, unspecified; R56.9 Unspecified convulsions; Z88.8 Allergy status to other drugs, medicaments and biological substances; Z88.5 Allergy status to narcotic agent; Z88.2 Allergy status to sulfonamides; J30.1 Allergic rhinitis due to pollen; J30.89 Other allergic rhinitis; J30.81 Allergic rhinitis due to animal (cat) (dog) hair and dander; Z79.899 Other long term (current) drug therapy
CPT/HCPCS: J2405

== ENCOUNTER → 2019-07-17 | Outpatient (REF) | payer OTHER ==
[~2019-07-17] MED LIST changes: +AZEL0.1S NARES; +CLON0.5T2; +FLUO20CA22; +FLUT11IN INH; +MAPA500T2 PO; +NAPR-885 PO; +RANI15TA PO; +ZOFR4TAB14 PO; +ZYRT10CA5 PO
== END ==
LOC: M SFHCPLAZ 15:55
PROVIDERS: ATTEND Family Medicine
DX: N52.9 Male erectile dysfunction, unspecified (principal)

== ENCOUNTER → 2020-05-31 | Outpatient (REF) | payer OTHER | LOC: M SFHCPLAZ 09:06 | PROVIDERS: ATTEND Family Medicine | DX: Z00.01 Encounter for general adult medical examination with abnormal findings (principal); Z83.49 Family history of other endocrine, nutritional and metabolic diseases; Z13.220 Encounter for screening for lipoid disorders ==

== ENCOUNTER → 2020-10-22 | Outpatient (REF) | payer OTHER ==
[2020-10-22 16:37] LABS: BASO # 0.1 10^3/uL (0.0-0.2); BASO % 0.6 % (0.0-1.0); EOS % 0.1 % (0.0-3.0); HEMATOCRIT 49.5 % (42.0-52.0); HEMOGLOBIN 16.9 g/dl (13.5-17.5); LYMPH # 2.3 10^3/uL (1.5-5.0); LYMPH % 20.8 % (24.0-44.0); MEAN CORPUSCULAR HEMOGLOBIN 28.3 pg (27.0-33.0); MEAN CORPUSCULAR HGB CONC 34.1 g/dl (32.0-36.5); MEAN CORPUSCULAR VOLUME 82.8 fl (80.0-96.0); MONO # 1.4 10^3/uL (0.0-0.8); MONO % 12.8 % (2.0-8.0); NEUTROPHILS # 7.1 10^3/uL (1.5-8.5); NEUTROPHILS % 65.4 % (36.0-66.0); PLATELET COUNT, AUTOMATED 327 10^3/uL (150-450); RED BLOOD COUNT 5.98 10^6/uL (4.30-6.10); WHITE BLOOD COUNT 10.8 10^3/uL (4.0-10.0)
== END ==
LOC: M LAB REF 15:48
PROVIDERS: ATTEND Surgery
DX: R21 Rash and other nonspecific skin eruption (principal)

== ENCOUNTER → 2021-02-11 | Outpatient (CLI) | payer MEDICAID | LOC: M OUTALCOH 09:41 | PROVIDERS: ATTEND Psychiatry & Neurology Psychiatry | DX: F11.20 Opioid dependence, uncomplicated (principal) ==

== ENCOUNTER → 2021-02-18 | Outpatient (CLI) | payer MEDICAID | LOC: M PLALAB 15:40 | PROVIDERS: ATTEND Psychiatry & Neurology Psychiatry | DX: F11.20 Opioid dependence, uncomplicated (principal) ==

== ENCOUNTER 2021-03-04 09:00 | Outpatient (RCR) | payer MEDICAID | END 2021-03-09 | LOC: M OUTALCOH 09:00 | PROVIDERS: ATTEND Psychiatry & Neurology Psychiatry | DX: F11.20 Opioid dependence, uncomplicated (principal) ==

== ENCOUNTER → 2021-04-08 | Outpatient (RCR) | payer MEDICAID | LOC: M OUTALCOH 03-11 10:06 | PROVIDERS: ATTEND Psychiatry & Neurology Psychiatry | DX: F11.20 Opioid dependence, uncomplicated (principal) ==

== ENCOUNTER 2021-04-29 13:00 | Outpatient (RCR) | payer MEDICAID | END 2021-05-09 | LOC: M OUTALCOH 13:00 | PROVIDERS: ATTEND Psychiatry & Neurology Psychiatry | DX: F11.20 Opioid dependence, uncomplicated (principal) ==

== ENCOUNTER 2021-06-03 09:00 | Outpatient (RCR) | payer MEDICAID | END 2021-06-09 | LOC: M OUTALCOH 09:00 | PROVIDERS: ATTEND Psychiatry & Neurology Psychiatry | DX: F11.20 Opioid dependence, uncomplicated (principal) ==

== ENCOUNTER 2021-07-04 15:00 | Outpatient (RCR) | payer MEDICAID | END 2021-07-07 | LOC: M OUTALCOH 15:00 | PROVIDERS: ATTEND Psychiatry & Neurology Psychiatry | DX: F11.20 Opioid dependence, uncomplicated (principal) ==

== ENCOUNTER 2021-08-04 16:00 | Outpatient (RCR) | payer MEDICAID | END 2021-08-07 | LOC: M OUTALCOH 16:00 | PROVIDERS: ATTEND Psychiatry & Neurology Psychiatry | DX: F11.20 Opioid dependence, uncomplicated (principal) ==

== ENCOUNTER 2021-09-01 16:00 | Outpatient (RCR) | payer MEDICAID | END 2021-09-06 | LOC: M OUTALCOH 16:00 | PROVIDERS: ATTEND Psychiatry & Neurology Psychiatry | DX: F11.20 Opioid dependence, uncomplicated (principal) ==

== ENCOUNTER 2021-09-29 13:00 | Outpatient (RCR) | payer MEDICAID | END 2021-10-07 | LOC: M OUTALCOH 13:00 | PROVIDERS: ATTEND Psychiatry & Neurology Psychiatry | DX: F11.20 Opioid dependence, uncomplicated (principal) ==

== ENCOUNTER → 2021-10-10 | Outpatient (CLI) | payer OTHER ==
[2021-10-10 17:59] LABS: BASO # 0.1 10^3/uL (0.0-0.2); BASO % 0.5 % (0.0-1.0); EOS # 0.1 10^3/uL (0.0-0.5); EOS % 0.8 % (0.0-3.0); HEMATOCRIT 47.1 % (42.0-52.0); HEMOGLOBIN 15.8 g/dl (13.5-17.5); LYMPH # 2.8 10^3/uL (1.5-5.0); LYMPH % 26.2 % (24.0-44.0); MEAN CORPUSCULAR HGB CONC 33.5 g/dl (32.0-36.5); MEAN CORPUSCULAR VOLUME 86.6 fl (80.0-96.0); MONO # 1.2 10^3/uL (0.0-0.8); MONO % 11.1 % (2.0-8.0); NEUTROPHILS # 6.5 10^3/uL (1.5-8.5); NEUTROPHILS % 61.1 % (36.0-66.0); PLATELET COUNT, AUTOMATED 285 10^3/uL (150-450); RED BLOOD COUNT 5.44 10^6/uL (4.30-6.10); WHITE BLOOD COUNT 10.6 10^3/uL (4.0-10.0)
[2021-10-10 18:28] LABS: ALBUMIN 4.4 GM/DL (3.2-5.2); ALT/SGPT 262 U/L (12-78); BILIRUBIN,TOTAL 1.9 MG/DL (0.2-1.0); BLOOD UREA NITROGEN 16 MG/DL (7-18); CALCIUM LEVEL 10.4 MG/DL (8.5-10.1); CARBON DIOXIDE LEVEL 30 MEQ/L (21-32); CHLORIDE LEVEL 102 MEQ/L (98-107); FREE T4 1.02 NG/DL (0.76-1.46); GLOMERULAR FILTRATION RATE > 60.0 (>60); GLUCOSE, FASTING 65 MG/DL (70-100); POTASSIUM SERUM 4.1 MEQ/L (3.5-5.1); SODIUM LEVEL 138 MEQ/L (136-145); TOTAL PROTEIN 8.1 GM/DL (6.4-8.2)
== END ==
LOC: M PLALAB 15:53
DX: F90.1 Attention-deficit hyperactivity disorder, predominantly hyperactive type (principal); F91.9 Conduct disorder, unspecified

== ENCOUNTER 2021-10-31 14:59 | Outpatient (RCR) | payer MEDICAID | END 2021-11-06 | LOC: M OUTALCOH 14:59 | PROVIDERS: ATTEND Psychiatry & Neurology Psychiatry | DX: F11.20 Opioid dependence, uncomplicated (principal) ==

== ENCOUNTER 2021-11-14 15:00 | Outpatient (RCR) | payer MEDICAID | END 2021-12-07 | LOC: M OUTALCOH 15:00 | PROVIDERS: ATTEND Psychiatry & Neurology Psychiatry | DX: F11.20 Opioid dependence, uncomplicated (principal) ==

== ENCOUNTER → 2023-01-04 | Outpatient (CLI) | payer OTHER ==
[2023-01-04 17:28] LABS: BASO # 0.1 10^3/uL (0.0-0.2); BASO % 0.7 % (0.0-1.0); EOS # 0.1 10^3/uL (0.0-0.5); EOS % 1.6 % (0.0-3.0); HEMOGLOBIN 17.2 g/dl (13.5-17.5); LYMPH # 2.1 10^3/uL (1.5-5.0); LYMPH % 31.3 % (24.0-44.0); MEAN CORPUSCULAR HEMOGLOBIN 29.4 pg (27.0-33.0); MEAN CORPUSCULAR HGB CONC 33.7 g/dl (32.0-36.5); MEAN CORPUSCULAR VOLUME 87.2 fl (80.0-96.0); MONO # 0.7 10^3/uL (0.0-0.8); MONO % 10.7 % (2.0-8.0); NEUTROPHILS # 3.7 10^3/uL (1.5-8.5); NEUTROPHILS % 55.4 % (36.0-66.0); PLATELET COUNT, AUTOMATED 281 10^3/uL (150-450); RED BLOOD COUNT 5.85 10^6/uL (4.30-6.10); WHITE BLOOD COUNT 6.8 10^3/uL (4.0-10.0)
[2023-01-04 17:44] LABS: HEMOGLOBIN A1c 5.1 % (4.0-6.0)
[2023-01-04 18:06] LABS: ALBUMIN 4.5 G/DL (3.2-5.2); ALKALINE PHOSPHATASE 87 U/L (46-116); ALT/SGPT 21 U/L (7.0-40); AST/SGOT < 8 U/L (<34); BILIRUBIN,TOTAL 1.6 MG/DL (0.3-1.2); BLOOD UREA NITROGEN 14 MG/DL (9-23); CALCIUM LEVEL 9.8 MG/DL (8.5-10.1); CARBON DIOXIDE LEVEL 28 MMOL/L (20-31); CHLORIDE LEVEL 103 MMOL/L (98-107); CHOLESTEROL LEVEL 197 MG/DL (<200); CHOLESTEROL RISK RATIO 4.82 (<5); CREATININE FOR GFR 0.98 MG/DL (0.70-1.30); GLOMERULAR FILTRATION RATE > 60.0 (>60); GLUCOSE, FASTING 88 MG/DL (60-100); HDL CHOLESTEROL 40.8 MG/DL (>40); LDL CHOLESTEROL 130.8 MG/DL (<100); NON-HDL-C 156.2 MG/DL; POTASSIUM SERUM 4.7 MMOL/L (3.5-5.1); SODIUM LEVEL 141 MMOL/L (136-145); TOTAL PROTEIN 7.7 G/DL (5.7-8.2); TRIGLYCERIDES LEVEL 127 MG/DL (<150)
== END ==
LOC: M PLALAB 15:20
PROVIDERS: ATTEND Student in an Organized Health Care Education/Training Program
DX: Z00.00 Encounter for general adult medical examination without abnormal findings (principal); R73.09 Other abnormal glucose; Z13.220 Encounter for screening for lipoid disorders; F90.9 Attention-deficit hyperactivity disorder, unspecified type

== ENCOUNTER → 2024-11-25 | Outpatient (REF) | payer OTHER ==
[~2024-11-25] MED LIST changes: -AZEL0.1S NARES; +AZEL137S8 NARES; +FLUO-365; -FLUO20CA22
== END ==
LOC: M SFHCPLAZ 12:46
DX: Z00.00 Encounter for general adult medical examination without abnormal findings (principal); E66.9 Obesity, unspecified; Z13.220 Encounter for screening for lipoid disorders; Z53.9 Procedure and treatment not carried out, unspecified reason

== ENCOUNTER 2025-03-31 17:21 | Emergency (ER) | payer MEDICAID, OTHER ==
[~2025-03-31] VITALS: Ht 185.4 cm; Wt 115.1 kg
[2025-03-31] MEDS: KETOROLAC 60 MG/2 ML VIAL IM ONE (23:29)
[2025-03-31] MEDS ORDERED: LIDO1ADH93 TOP (23:42)
[2025-03-31] MEDS ORDERED: METH-1164 PO (23:42)
[2025-04-01] MEDS: LIDOCAINE 5% PATCH TD ONE (00:06)
[2025-04-01 00:08] VITALS: BP 126/81; TEMP 96.4; O2SAT 100
== END 2025-04-01 00:10 | disposition home or self-care (01) ==
LOC: M ED 17:21
DX: M62.830 Muscle spasm of back (principal); V49.40XA Driver injured in collision with unspecified motor vehicles in traffic accident, initial encounter; F32.A Depression, unspecified; G40.909 Epilepsy, unspecified, not intractable, without status epilepticus; Z88.5 Allergy status to narcotic agent; Z88.2 Allergy status to sulfonamides; Z88.8 Allergy status to other drugs, medicaments and biological substances; Z91.09 Other allergy status, other than to drugs and biological substances; Z79.1 Long term (current) use of non-steroidal anti-inflammatories (NSAID); Z79.899 Other long term (current) drug therapy; Y99.9 Unspecified external cause status; Y92.410 Unspecified street and highway as the place of occurrence of the external cause; Y93.89 Activity, other specified
CPT/HCPCS: 72110; 73030; 73502; 96372; 99284; J1885